=== PATIENT | male | born 1995 | race African-American/Black ===

== ENCOUNTER 2017-05-09 03:20 | Emergency (ER) | payer SELFPAY ==
[~2017-05-09] VITALS: Ht 172.7 cm; Wt 68.0 kg
[~2017-05-09 03:20] MED LIST: ALBU6.7H INH; DOXY100C PO; PRED-503 PO
[2017-05-09 03:23] VITALS: BP 144/88; PULSE 78; RESP 15; TEMP 98.5; O2SAT 98
[2017-05-09] MEDS ORDERED: PENICILLIN V POTASSIUM 500 MG TAB PO ONE (04:30)
[2017-05-09] MEDS ORDERED: IBUPROFEN 600 MG TAB PO ONE (04:30)
[2017-05-09] MEDS ORDERED: PENI500T PO (04:56)
[2017-05-09] MEDS ORDERED: IBUP-1129 PO (04:56)
--- NOTE | 2017-05-09 04:56 | PD ---
HPI Chief Complaint: Oral / Dental Pain or Problem Time Seen by Provider: 04:22 Travel History International Travel<30 days: No Contact w/Intl Traveler<30days: No Traveled to known affect area: No History of Present Illness HPI 21-year-old male with history of wisdom tooth problems, dental pain, presents to the ER today because he states that he has had increased dental pain in the right wisdom tooth area, he states has been draining blood and pus. He denies any fevers but states that he thinks is giving him headaches, and he currently is complaining of a 6 out of 10 pain. He denies fevers, vomiting, or any other symptoms. Modifying Factors: None Associated Signs & Symptoms: Dental pain, headaches Risk Factors: None PFSH Past Medical History Asthma: Yes (BRONCHITIS) Tetanus Vaccination: Unknown Influenza Vaccination: No Past Surgical History Surgical History: No Previous Surgery Social History Alcohol Use: Yes (occ) Tobacco Use: Yes Substance Use: No Allergies-Medications (Allergen,Severity, Reaction): Coded Allergies: No Known Allergies (Unverified , 05/09/17) Reported Meds & Prescriptions Reported Meds & Active Scripts Active No Active Prescriptions or Reported Medications Review of Systems Except as stated in HPI: all other systems reviewed are Neg Physical Exam Narrative GENERAL: Young after [place]er male patient currently in mild distress. Awake and oriented 3. SKIN: Focused skin assessment warm/dry. HEAD: Atraumatic. Normocephalic. DENTAL: There is a notable right mandibular posterior molar Blanca but without significant surrounding edema. No malocclusion. EYES: Pupils equal and round. No scleral icterus. No injection or drainage. ENT: No nasal bleeding or discharge. Mucous membranes pink and moist. NECK: Trachea midline. No JVD. CARDIOVASCULAR: Regular rate and rhythm. No murmur appreciated. RESPIRATORY: No accessory muscle use. Clear to auscultation. Breath sounds equal bilaterally. GASTROINTESTINAL: Abdomen soft, non-tender, nondistended. Hepatic and splenic margins not palpable. MUSCULOSKELETAL: No obvious deformities. No clubbing. No cyanosis. No edema. NEUROLOGICAL: Awake and alert. No obvious cranial nerve deficits. Motor grossly within normal limits. Normal speech. PSYCHIATRIC: Appropriate mood and affect; insight and judgment normal. Data Data Last Documented VS Vital Signs Date Time Temp Pulse Resp B/P Pulse Ox O2 Delivery O2 Flow Rate FiO2 05/09/17 03:37 18 05/09/17 03:23 98.5 78 144/88 98 Room Air Orders Ibuprofen (Motrin) (05/09/17 04:30) Penicillin V Potassium (Veetids) (05/09/17 04:30) MDM Medical Decision Making Medical Screen Exam Complete: Yes Emergency Medical Condition: Yes Medical Record Reviewed: Yes Differential Diagnosis Dental caries/dental issues Narrative Course Patient has definite dental issues and does not have any signs of dental abscess currently although a dental abscess that had already self drained cannot be rule out. My plan would be to give him antibiotic treatment and patient should follow-up with dentist. Return for new issues as needed. The plan has been discussed with him and he states understanding. Diagnosis Primary Impression: Dental caries Med/Other Pt SpecificInfo: Prescription(s) given Scripts Ibuprofen (Motrin Ib)200 Mg [id number] Mg PO QID PRN (PAIN SCALE 1 TO 10) #21 Prov:Mae Espino MD 05/09/17 Penicillin V Potassium 500 Mg [id number] Mg PO Q6H 7 Days Ref 0 Prov:Mae Espino MD 05/09/17 Disposition: 01 DISCHARGE HOME Condition: Stable Mae Espino MD May 09, 2017 04:56
== END 2017-05-09 05:08 | disposition home or self-care (01) ==
LOC: NEPE 03:20
DX: K02.9 Dental caries, unspecified (principal); J45.909 Unspecified asthma, uncomplicated; Z72.0 Tobacco use
CPT/HCPCS: 99283

== ENCOUNTER 2017-09-30 09:18 | Emergency (ER) | payer SELFPAY ==
[~2017-09-30] VITALS: Ht 172.7 cm; Wt 67.0 kg
[~2017-09-30 09:18] MED LIST changes: -ALBU6.7H INH; -DOXY100C PO; +IBUP-1129 PO; +PENI500T PO; -PRED-503 PO
[2017-09-30 09:21] VITALS: BP 126/75; PULSE 84; RESP 14; TEMP 98.1; O2SAT 100
--- NOTE | 2017-09-30 09:53 | PD ---
HPI Chief Complaint: Cold / Flu Symptoms Time Seen by Provider: 09:52 Travel History International Travel<30 days: No Contact w/Intl Traveler<30days: No Traveled to known affect area: No History of Present Illness HPI EAR PAIN, NAUSEA, COUGH, BODY ACHES X 1 WEEK, currently denies fever though he thinks he's had them over the past week. has had other sick contacts recently with similar symptoms PFSH Past Medical History Asthma: Yes (BRONCHITIS) Respiratory: Yes (ASTHMA) Social History Alcohol Use: No Tobacco Use: Yes Substance Use: No Allergies-Medications (Allergen,Severity, Reaction): Coded Allergies: No Known Allergies (Unverified , 05/09/17) Reported Meds & Prescriptions Reported Meds & Active Scripts Active Ventolin Hfa 18 GM Inh (Albuterol Sulfate) 90 Mcg/Act Aer 1 Puff INH Q4H PRN Medrol Dosepak (Methylprednisolone) 4 Mg Dspk 4 Mg PO DIRECTED Per Pharmacist direction Tamiflu (Oseltamivir Phosphate) 75 Mg Cap 75 Mg PO BID 5 Days Review of Systems Except as stated in HPI: all other systems reviewed are Neg General / Constitutional: Positive: Chills Eyes: No: Visual changes HENT: Positive: Earache Cardiovascular: No: Chest Pain or Discomfort Respiratory: Positive: Cough Gastrointestinal: No: Abdominal Pain Genitourinary: No: Dysuria Musculoskeletal: No: Pain Skin: No Rash Neurologic: No: Weakness Psychiatric: No: Depression Endocrine: No: Polydipsia Hematologic/Lymphatic: No: Easy Bruising Physical Exam Narrative GENERAL: SKIN: Warm and dry. HEAD: Atraumatic. Normocephalic. EYES: Pupils equal and round. No scleral icterus. No injection or drainage. ENT: No nasal bleeding or discharge. Mucous membranes pink and moist. NECK: Trachea midline. No JVD. CARDIOVASCULAR: Regular rate and rhythm. RESPIRATORY: No accessory muscle use. Clear to auscultation. Breath sounds equal bilaterally. GASTROINTESTINAL: Abdomen soft, non-tender, nondistended. Hepatic and splenic margins not palpable. MUSCULOSKELETAL: Extremities without clubbing, cyanosis, or edema. No obvious deformities. NEUROLOGICAL: Awake and alert. No obvious cranial nerve deficits. Motor grossly within normal limits. Five out of 5 muscle strength in the arms and legs. Normal speech. PSYCHIATRIC: Appropriate mood and affect; insight and judgment normal. Data Data Last Documented VS Vital Signs Date Time Temp Pulse Resp B/P (MAP) Pulse Ox O2 Delivery O2 Flow Rate FiO2 09/30/17 11:02 09/30/17 09:21 98.1 84 14 100 Orders Orders Ed Discharge Order (09/30/17 10:53) MDM Medical Decision Making Medical Screen Exam Complete: Yes Emergency Medical Condition: Yes Medical Record Reviewed: Yes Differential Diagnosis flu v om v pna Narrative Course patient is clinically stable, will d/c with tamiflu, albuterol and medrol dosepak Diagnosis Primary Impression: Influenza Patient Instructions: General Instructions, Influenza (DC) Scripts Albuterol 18 GM Inh (Ventolin Hfa 18 GM Inh) 90 Mcg/Act Aer 1 PUFF INH Q4H Y for SHORTNESS OF BREATH, #1 INHALER 0 Refills Prov: Wero Jonas MD 09/30/17 Methylprednisolone Dosepak (Medrol Dosepak) 4 Mg Dspk 4 MG PO DIRECTED, #1 DSPK 0 Refills Per Pharmacist direction Prov: Wero Jonas MD 09/30/17 Oseltamivir (Tamiflu) 75 Mg Cap 75 MG PO BID for Mgmt Viral Infection for 5 Days, #10 CAP 0 Refills Prov: Wero Jonas MD 09/30/17 Disposition: 01 DISCHARGE HOME Condition: Stable Wero Jonas MD Sep 30, 2017 09:53
[2017-09-30] MEDS ORDERED: OSEL75 PO (10:12)
[2017-09-30] MEDS ORDERED: VENTAER INH (10:12)
[2017-09-30] MEDS ORDERED: MEDR4PAK PO (10:12)
== END 2017-09-30 11:03 | disposition home or self-care (01) ==
LOC: NEPD 09:18
DX: J10.89 Influenza due to other identified influenza virus with other manifestations (principal); Z72.0 Tobacco use
CPT/HCPCS: 99284

== ENCOUNTER 2017-10-10 08:12 | Emergency (ER) | payer OTHER ==
[~2017-10-10] VITALS: Ht 172.7 cm; Wt 65.0 kg
[~2017-10-10 08:12] MED LIST changes: -IBUP-1129 PO; +MEDR4PAK PO; +OSEL75 PO; -PENI500T PO; +VENTAER INH
[2017-10-10 08:26] VITALS: BP 121/70; PULSE 87; RESP 16; TEMP 97.6; O2SAT 100
[2017-10-10 08:27] VITALS: O2SAT 100
[2017-10-10] MEDS ORDERED: SODIUM CHLORIDE 0.9% FLUSH 10 ML FLUSH IVF PRN (08:30)
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
[2017-10-10 08:48] LABS: AUTOMATED NEUTROPHIL # 7.2 TH/MM3 (1.8-7.7); BASOPHIL # 0.1 TH/MM3 (0-0.2); BASOPHIL % 0.5 % (0.0-2.0); EOSINOPHIL # 0.1 TH/MM3 (0-0.4); EOSINOPHIL % 1.1 % (0.0-4.0); HEMATOCRIT 43.9 % (39.0-51.0); HEMO FLAGS DIFF FINAL; LYMPH % 15.7 % (9.0-44.0); LYMPHOCYTE # 1.6 TH/MM3 (1.0-4.8); MEAN CELL VOLUME 91.3 FL (80.0-100.0); MEAN CORPUSCULAR HEMOGLOBIN 31.3 PG (27.0-34.0); MEAN CORPUSCULAR HGB CONC 34.3 % (32.0-36.0); MONO % 9.6 % (0.0-8.0); NEUT % 73.1 % (16.0-70.0); PLATELET COUNT 256 TH/MM3 (150-450); RED BLOOD COUNT 4.81 MIL/MM3 (4.50-5.90); RED CELL DISTRIBUTION WIDTH 12.8 % (11.6-17.2); WHITE BLOOD COUNT 9.9 TH/MM3 (4.0-11.0)
[2017-10-10 09:17] LABS: BICARBONATE 26.1 MEQ/L (21.0-32.0); POTASSIUM 3.9 MEQ/L (3.5-5.1)
[2017-10-10] MEDS ORDERED: MORPHINE SULFATE 2 MG/ML INJ IV PUSH ONE (09:30)
[2017-10-10] MEDS ORDERED: ONDANSETRON HCL 4 MG/2 ML VIAL IV PUSH ONE (09:30)
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
[2017-10-10] MEDS ORDERED: IOHEXOL 350 MG/ML 10 ML VIAL (for RAD DIAG) IVCONTRAST ONE (09:50)
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
[2017-10-10 09:57] VITALS: BP 119/67; PULSE 75; RESP 17; O2SAT 99
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
== END 2017-10-10 10:43 | disposition home or self-care (01) ==
LOC: NEPC 08:12
DX: M54.9 Dorsalgia, unspecified (principal); M79.602 Pain in left arm; J45.909 Unspecified asthma, uncomplicated; F17.200 Nicotine dependence, unspecified, uncomplicated; V43.52XA Car driver injured in collision with other type car in traffic accident, initial encounter; Z79.51 Long term (current) use of inhaled steroids; Z79.899 Other long term (current) drug therapy
CPT/HCPCS: 70450; 71010; 72125; 73080; 73090; 74177; 80048; 85025; 96374; 96375; 99285; J2270; J2405; Q9967

== ENCOUNTER 2017-10-29 21:45 | Emergency (ER) | payer SELFPAY ==
[2017-10-29 21:47] VITALS: BP 140/98; PULSE 77; RESP 16; TEMP 98.9; O2SAT 98
[2017-10-29] MEDS ORDERED: AUGM875T3 PO (22:29)
--- NOTE | 2017-10-29 22:35 | PD ---
HPI Chief Complaint: ENT Complaint Time Seen by Provider: 22:29 Travel History International Travel<30 days: No Contact w/Intl Traveler<30days: No Traveled to known affect area: No History of Present Illness HPI This is a 22-year-old male who presents for evaluation of right ear pain. He reports over 2 weeks he has had cough, congestion, right ear pain. Pain is aching, constant, no aggravating or alleviating factors. He denies recent travel, recent swimming, ear discharge, fevers or chills, sore throat. No sick contacts. No other complaints. PFSH Past Medical History Asthma: Yes (BRONCHITIS) Respiratory: Yes (ASTHMA) Social History Alcohol Use: Yes (on occasion, liquor) Tobacco Use: Yes (1/2 ppd) Substance Use: Yes (marijuana, occasionally) Allergies-Medications (Allergen,Severity, Reaction): Coded Allergies: No Known Allergies (Unverified Adverse Reaction, Unknown, 10/10/17) Reported Meds & Prescriptions Reported Meds & Active Scripts Active Augmentin (Amoxicillin-Clavulanate) 875-125 Mg Tab 1 Tab PO BID 10 Days Ventolin Hfa 18 GM Inh (Albuterol Sulfate) 90 Mcg/Act Aer 1 Puff INH Q4H PRN Medrol Dosepak (Methylprednisolone) 4 Mg Dspk 4 Mg PO DIRECTED Per Pharmacist direction Tamiflu (Oseltamivir Phosphate) 75 Mg Cap 75 Mg PO BID 5 Days Review of Systems Except as stated in HPI: all other systems reviewed are Neg Physical Exam Narrative GENERAL: Well-developed well-nourished male in no acute distress SKIN: Warm and dry. HEAD: Atraumatic. Normocephalic. EYES: Pupils equal and round. No scleral icterus. No injection or drainage. ENT: No nasal bleeding or discharge. Mucous membranes pink and moist. Unable to visualize her tympanic membranes secondary to cerumen impaction. Oropharynx is without erythema or exudate. NECK: Trachea midline. No JVD. No lymphadenopathy. CARDIOVASCULAR: Regular rate and rhythm. No murmur appreciated. RESPIRATORY: No accessory muscle use. Clear to auscultation. Breath sounds equal bilaterally. Data Data Last Documented VS Vital Signs Date Time Temp Pulse Resp B/P (MAP) Pulse Ox O2 Delivery O2 Flow Rate FiO2 10/29/17 21:47 98.9 77 16 140/98 (112) 98 Room Air MDM Medical Decision Making Medical Screen Exam Complete: Yes Emergency Medical Condition: Yes Medical Record Reviewed: Yes Differential Diagnosis Otitis media, otitis externa, eustachian tube dysfunction, mastoiditis, perforated tympanic membrane, cerumen impaction Narrative Course 22-year-old male who has had cough and congestion for 2 weeks presents with right ear pain. Unable to visualize tympanic membranes secondary to cerumen impaction but his symptoms are certainly suggestive of otitis media. Ear irrigation will be deferred because of his pain. The patient will be discharged with Augmentin. Diagnosis Primary Impression: Otalgia, right ear Additional Impression: Cerumen impaction Additional Instructions: Medication as prescribed. Avoid Q-tips. Follow-up with primary care physician in 2 weeks. Return for any emergent medical conditions. Med/Other Pt SpecificInfo: Prescription(s) given Scripts Amoxicillin-Clavulanate (Augmentin) 875-125 Mg Tab 1 TAB PO BID for Infection for 10 Days, #20 TAB 0 Refills Prov: Wero Jonas MD 10/29/17 Disposition: 01 DISCHARGE HOME Condition: Stable Heber Richard Oct 29, 2017 22:35
[2017-10-29] MEDS ORDERED: IBUPROFEN 800 MG TAB PO ONE (22:45)
== END 2017-10-29 22:50 | disposition home or self-care (01) ==
LOC: NEPD 21:45
DX: H61.21 Impacted cerumen, right ear (principal); R05 Cough; R09.81 Nasal congestion; J45.909 Unspecified asthma, uncomplicated; F17.200 Nicotine dependence, unspecified, uncomplicated; Z79.899 Other long term (current) drug therapy
CPT/HCPCS: 99283

== ENCOUNTER 2018-01-03 15:35 | Emergency (ER) | payer SELFPAY ==
[~2018-01-03] VITALS: Ht 172.7 cm; Wt 65.0 kg
[~2018-01-03 15:35] MED LIST changes: +AUGM875T3 PO
[2018-01-03 15:39] VITALS: BP 128/74; PULSE 118; RESP 14; TEMP 101; O2SAT 98
== END 2018-01-03 17:50 | disposition left against medical advice (07) ==
LOC: NED 15:35
DX: R06.7 Sneezing (principal); M79.1 Myalgia; R50.9 Fever, unspecified; Z53.21 Procedure and treatment not carried out due to patient leaving prior to being seen by health care provider
CPT/HCPCS: 87804; 99281